=== PATIENT | male | born 1945 | race Caucasian/White ===

== ENCOUNTER 2017-05-04 12:18 | Day surgery (SDC) | payer MEDICARE ==
[~2017-05-04] VITALS: Ht 177.8 cm; Wt 112.0 kg
[~2017-05-04 12:18] MED LIST: ACETAMIN-CODE12.5 ML PO; DIGITEK250 MCG PO; FLOMAX0.4 MG PO; ISOSORBIDE DINI30 MG PO; JANTOVEN5 MG PO; LIPITOR20 MG PO; METOPROLOL SUC100 MG PO; SIMVASTATIN40 MG PO
--- NOTE | 2017-05-04 15:03 | NUR ---
05/04/17 Joseluis3 Barbara Coronado 1500-PATIENT ARRIVED TO PACU ON 2L NC O2 SAT 99% PATIENT AWAKE DENIES PAIN OR NAUSEA. ABDOMEN ROUND AND SOFT ENCOURAGED TO PASS FLATUS.
--- NOTE | 2017-05-08 13:40 | OR ---
[facility] [address], [place] [address] Signed DATE OF PROCEDURE: 05/04/17 PREOPERATIVE DIAGNOSES Constipation. Past history of incisional hernia repair, related to prior open Daria fundoplication, elsewhere. POSTOPERATIVE DIAGNOSIS Polyp of ascending colon at the ileocecal valve area (excised) and sessile polyp of the low rectum (excised). PROCEDURE Total colonoscopy to cecum with hot snare polypectomy x1 and combination ablation of right colonic polyp (hot snare, cold morcellation, and snare as well as application of hemoclip). SURGEON: Jacky Zamora MD. ANESTHESIA: Intravenous sedation with Fentanyl 100 mcg, Versed at 7 mg. INDICATION A 72-year-old white man, a patient of Dr. Barney Norton, known to me from the past, having undergone incisional hernia repair in 2003. This large hernia was related to an open Daria fundoplication performed elsewhere. He has since, I saw him over 10 years ago, developed atrial fibrillation and is chronically anticoagulated with Coumadin. His main issue is that of constipation. He requires a laxative to have a bowel movement at any time. He is admitted at this time to undergo colonoscopy understanding the risks of bleeding, infection, and perforation. FINDINGS The prep was good. Complete colonoscopy was undertaken to the cecum. There was a sessile polyp just cephalad to the ileocecal valve, which was excised with combination of techniques and others sessile polyp at the low rectum excised with hot snare polypectomy technique. There were few scattered diverticula, but not many and there is no sign of obstruction in any way. PROCEDURE IN DETAIL The patient brought to the endoscopy suite and placed in lateral decubitus position, and given intravenous sedation to the point of slurred speech and nystagmus. Digital rectal examination was normal. An Olympus video colonoscope was passed in the rectum and manipulated throughout the Electronically Signed By: JACKY ZAMORA MD 05/08/17 1590 PATIENT NAME: AMILCAR HANKINS OPERATIVE REPORT DATE OF : 45 PHYSICIAN: JACKY ZAMORA MD REPORT #: [id number] REPORT IS CONFIDENTIAL AND NOT TO BE RELEASED WITHOUT AUTHORIZATION [facility] [address], [place] [address] Signed colon ultimately intubating the cecum itself. There was a small polyp of the ileocecal valve area. This was excised with combination of techniques of cold morcellation biopsy, hot snare polypectomy, and hot morcellation polypectomy. As there was minimal amount of oozing in the area, hemoclip was applied, particularly given his anticipated resumption of Coumadin in the near future. The scope was then withdrawn from that point. Examination throughout showed a few scattered diverticula, but no dense areas of diverticulosis. There was a small polyp on retroflexed view of the rectum that was sessile. It was excised with hot snare polypectomy technique as well. Hemostasis was good. The scope was removed. The patient was taken to recovery room in good condition. CONCLUDING DIAGNOSIS Uncertain etiology of his constipation. PLAN Recommend MiraLAX daily and added fiber to diet. We will review his pathology reports. Repeat colonoscopy in 3 years sooner if clinically indicated. He will resume Coumadin in 1 week. MD TOM Sher/Modl /[id number] cc: MD Jacky Andersen, OR Electronically Signed By: JACKY ZAMORA MD 05/08/17 1340 PATIENT NAME: AIMLCAR HANKINS OPERATIVE REPORT DATE OF : 45 PHYSICIAN: JACKY ZAMORA MD REPORT #: [id number] REPORT IS CONFIDENTIAL AND NOT TO BE RELEASED WITHOUT AUTHORIZATION
== END 2017-05-04 15:40 | disposition home or self-care (01) ==
LOC: DS 12:18 → OPS 12:18 → DS 14:00 → OPS 15:40
PROVIDERS: Surgery
PROC: 0DBP8ZX Excision of Rectum, Via Natural or Artificial Opening Endoscopic, Diagnostic (ICD-10-PCS; 2017-05-04)
PROC: 0DBH8ZX Excision of Cecum, Via Natural or Artificial Opening Endoscopic, Diagnostic (ICD-10-PCS; principal; 2017-05-04 14:00)
DX: D12.0 Benign neoplasm of cecum (principal); K62.1 Rectal polyp; I25.10 Atherosclerotic heart disease of native coronary artery without angina pectoris; G47.30 Sleep apnea, unspecified; K57.30 Diverticulosis of large intestine without perforation or abscess without bleeding; I10 Essential (primary) hypertension; I48.2 Chronic atrial fibrillation; E66.9 Obesity, unspecified; K59.09 Other constipation; E78.00 Pure hypercholesterolemia, unspecified; Z95.5 Presence of coronary angioplasty implant and graft; Z90.49 Acquired absence of other specified parts of digestive tract; Z98.890 Other specified postprocedural states; Z79.01 Long term (current) use of anticoagulants; Z68.35 Body mass index [BMI] 35.0-35.9, adult
CPT/HCPCS: 88305; 99152; 99153; J2250; J3010